=== PATIENT | female | born 1955 | race Caucasian/White ===

== ENCOUNTER 2017-09-21 08:36 | Day surgery (SDC) | payer BC ==
[~2017-09-21] VITALS: Ht 160 cm; Wt 87.5 kg
[~2017-09-21 08:36] MED LIST: EXCEDRIN EXTRA1 EACH PO; INDERAL10 MG PO; NASONEX17 GM BOTH NARES; PRILOSEC20 MG PO; PRINIVIL10 MG PO; WELLBUTRIN100 MG PO; ZOFRAN4 MG PO
[2017-09-21] MEDS ORDERED: LINZESS145 MCG PO (08:56)
[2017-09-21] MEDS ORDERED: GLUCOSAMINE &1 EAC1 PO (08:57)
[2017-09-21] MEDS ORDERED: FISH OIL 1,0001 EA10 PO (08:57)
[2017-09-21] MEDS ORDERED: ALLEGRA ALLERG180 MG PO ×2 (08:58)
[2017-09-21] MEDS ORDERED: PROAIR HFA8.5 GM IH (08:59)
[2017-09-21] MEDS ORDERED: ULTRAM50 MG PO ×2 (09:00→13:41)
[2017-09-21 09:04] VITALS: BP 169/84
[2017-09-21 15:05] VITALS: BP 159/88
[2017-09-21 16:00] VITALS: BP 155/81
== END 2017-09-21 16:24 | disposition home or self-care (01) ==
LOC: SDC 08:36
PROC: 0FT44ZZ Resection of Gallbladder, Percutaneous Endoscopic Approach (ICD-10-PCS; principal; 2017-09-21)
DX: K80.10 Calculus of gallbladder with chronic cholecystitis without obstruction (principal); K66.0 Peritoneal adhesions (postprocedural) (postinfection); I10 Essential (primary) hypertension; F41.9 Anxiety disorder, unspecified; K21.9 Gastro-esophageal reflux disease without esophagitis; E78.00 Pure hypercholesterolemia, unspecified; E66.9 Obesity, unspecified; Z68.34 Body mass index [BMI] 34.0-34.9, adult; G47.30 Sleep apnea, unspecified; Z85.3 Personal history of malignant neoplasm of breast
CPT/HCPCS: 88304; J0690; J1100; J1170; J1885; J2250; J2405; J2710; J2795; J3475; J7643; Q0175